=== PATIENT | male | born 1955 | race Caucasian/White ===

== ENCOUNTER 2024-09-28 10:54 | Emergency (ER) | payer OTHER ==
[~2024-09-28] VITALS: Ht 175.3 cm; Wt 120.0 kg
[2024-09-28 11:15] LABS: BASOPHILS 0.3 % (0.2-1.2); EOSINOPHILS 0.3 % (0.8-7.0); HEMATOCRIT 47.7 % (40.1-51.0); HEMOGLOBIN 15.5 g/dL (13.7-17.5); LYMPHOCYTES 13.3 % (21.8-53.1); MCH 28.3 PG (25.7-32.2); MCHC 32.5 g/dL (32.3-36.5); MONOCYTES 6.6 % (5.3-12.2); NEUTROPHILS 79.2 % (34.0-67.9); PLATELET COUNT 207 K/uL (163-337); RBC 5.48 M/uL (4.63-6.08)
[2024-09-28 11:43] LABS: ACETAMINOPHEN 0 ug/mL (10-30); ALBUMIN 4.1 g/dL (3.4-5.0); ALBUMIN/GLOBULIN RATIO 1.14 (1.1-2.4); ALCOHOL, MEDICAL <3 ng/dL (<3); ALKALINE PHOSPHATASE 41 U/L (46-116); ALT (SGPT) 34 U/L (14-59); ANION GAP 17.7 (7-21); AST (SGOT) 30 U/L (15-37); BILIRUBIN, TOTAL 0.7 mg/dL (0.2-1.0); BUN/CREATININE RATIO 18.08 (6.0-28.6); CARBON DIOXIDE 27 mmol/L (21-32); CHLORIDE 107 mmol/L (98-107); CREATININE, SERUM 0.94 mg/dL (0.70-1.30); GLOMERULAR FILTRATION RATE,EST 87 mL/min (>60); POTASSIUM 3.7 mmol/L (3.5-5.1); PROTEIN, TOTAL 7.7 g/dL (6.4-8.2); SALICYLATE 1.3 mg/dL (2.8-20.0); TSH, 3RD GENERATION 0.819 uIU/mL (0.358-3.740); UREA NITROGEN 17 mg/dL (7-18)
[2024-09-28 12:00] LABS: BILIRUBIN, URINE NEGATIVE (negative); BLOOD/HGB, URINE TRACE-I (Negative); KETONE, URINE >=80 (Negative); LEUK ESTERASE, URINE NEGATIVE (negative); NITRITE, URINE NEGATIVE (negative)
[2024-09-28 12:08] LABS: BACTERIA, URINE NONE SEEN /hpf (negative); CASTS, URINE NONE SEEN \\lpf; CRYSTALS, URINE NONE SEEN (0-1+); EPITHELIAL CELLS, URINE SQUAMOUS 1+ /lpf (0-1+); WHITE BLOOD CELLS, URINE 0-1 /HPF (0-5)
[2024-09-28 12:09] LABS: COLLECTION TYPE, URINE CLEAN CATCH; REFLEX CULTURE, URINE No (No)
[2024-09-28 12:21] LABS: AMPHETAMINES, URINE NEGATIVE (NEGATIVE); BARBITURATES, URINE NEGATIVE (NEGATIVE); BENZODIAZEPINE, URINE NEGATIVE (NEGATIVE); BUPRENORPHINE, URINE NEGATIVE (NEGATIVE); CANNABINOID, URINE NEGATIVE (NEGATIVE); COCAINE, URINE NEGATIVE (NEGATIVE); ECSTASY, URINE NEGATIVE (NEGATIVE); FENTANYL, URINE NEGATIVE (NEGATIVE); METHADONE, URINE NEGATIVE (NEGATIVE); OPIATES, URINE NEGATIVE (NEGATIVE); OXYCODONE, URINE POSITIVE (NEGATIVE); PHENCYCLIDINE, URINE NEGATIVE (NEGATIVE)
[2024-09-28] MEDS ORDERED: OLANZapine 10 MG TABDIS PO ONE (13:45)
[2024-09-28] MEDS ORDERED: LORazepam 1 MG TAB PO ONE (15:15)
[2024-09-29] MEDS ORDERED: OXYCODONE/APAP 10/325 TAB PO ONE (01:45)
[2024-09-29] MEDS ORDERED: LORazepam 0.5 MG TAB PO ONE (10:45)
[2024-09-29] MEDS ORDERED: OLANZapine 10 MG TABDIS PO ONE (10:45)
[2024-09-29] MEDS ORDERED: OLANZAPINE ODT5 MG PO (11:25)
[2024-09-29] MEDS ORDERED: HYDROCODONE/APAP 10/325 1 TAB PO ONE (11:30)
[2024-09-29 14:15] VITALS: BP 136/69
--- NOTE | 2024-10-01 12:10 | EKG ---
[facility] [address] [facility] [place] [address] Signed Normal sinus rhythm Normal ECG Confirmed by Krunal Gomes DO ([id number]) on 10/01/2024 12:10:22 PM Electronically Signed By: KRUNAL GOMES DO 10/01/24 1210 PATIENT NAME: MICHAEL NANCE Electrocardiogram DATE OF : 53 PHYSICIAN: KRUNAL GOMES DO REPORT #: [id number] REPORT IS CONFIDENTIAL AND NOT TO BE RELEASED WITHOUT AUTHORIZATION
== END 2024-09-29 14:15 | disposition home or self-care (01) ==
LOC: ED 10:54
PROVIDERS: Emergency Medicine
DX: F29 Unspecified psychosis not due to a substance or known physiological condition (principal)
CPT/HCPCS: 36415; 80053; 80307; 81001; 84443; 85025; 87088; 93005; 93010; 99285; A9270; A9270-GY; G0480